=== PATIENT | male | born 1965 | race Caucasian/White ===

== ENCOUNTER 2019-02-16 11:58 | Emergency (ER) | payer OTHER ==
[~2019-02-16] VITALS: Ht 188 cm; Wt 113.4 kg
[~2019-02-16 11:58] MED LIST: FLOMAX PO; PERCOCET 5-3251 EACH PO; PERCOCET 7.5-31 EACH PO
[2019-02-16 12:37] LABS: ABSOLUTE NEUTROPHILS 7.1 thou/uL (1.4-8.2); BASOPHILS 0.4 % (0.0-2.0); HEMATOCRIT 44.8 % (42.0-52.0); HEMOGLOBIN 14.8 gm/dL (14.0-18.0); LYMPHOCYTES 24.1 % (24.0-44.0); MCH 29.8 pg (26.0-34.0); MCHC 33.1 g/dL (28.0-37.0); MCV 89.9 fL (80.0-100.0); MONOCYTES 10.7 % (1.0-8.0); PLATELET COUNT 260 thou/uL (150-400); POLYS 61.8 % (36.0-66.0); RBC 4.98 mil/uL (4.50-6.00); RDW 12.9 % (10.5-14.5); WBC 11.5 thou/uL (4.0-11.0)
[2019-02-16 12:38] LABS: URINE BILIRUBIN NEGATIVE (Negative); URINE BLOOD 3+ (Negative); URINE CLARITY TURBID; URINE COLOR RED; URINE GLUCOSE-RANDOM* NEGATIVE (Negative); URINE KETONES NEGATIVE (Negative); URINE LEUKOCYTES-REFLEX NEGATIVE (Negative); URINE NITRITE-REFLEX NEGATIVE (Negative); URINE PROTEIN (DIPSTICK) 2+ (Negative); URINE SPECIFIC GRAVITY 1.025 (1.005-1.035)
[2019-02-16 12:41] LABS: URINE RBC >20 Many /HPF (0-2)
[2019-02-16 12:42] LABS: BACTERIA-REFLEX 1-9 Few /HPF (None Seen); CASTS None Seen /LPF (None Seen); CRYSTALS None Seen /LPF (None Seen); SQUAMOUS None Seen /LPF (0-3); URINE WBC-REFLEX 6-15 Few /HPF (0-5)
[2019-02-16 12:48] LABS: CALCIUM 8.7 mg/dL (8.5-10.1); CREATININE 1.1 mg/dL (0.7-1.3); POTASSIUM 3.6 mmol/L (3.5-5.1)
[2019-02-16 12:54] LABS: ALBUMIN 4.4 g/dL (3.4-5.0); TOTAL BILIRUBIN 1.6 mg/dL (<0.1-1.0); TOTAL PROTEIN 7.6 g/dL (6.4-8.2)
[2019-02-16 15:15] VITALS: BP 148/67
[2019-02-16] MEDS ORDERED: ONDANSETRON HCL4 M2 PO ×2 (15:24→15:26)
[2019-02-16] MEDS ORDERED: HYDROCODONE-AP1 EAC6 PO ×2 (15:24→15:26)
== END 2019-02-16 15:15 | disposition home or self-care (01) ==
LOC: ER 11:58
PROVIDERS: Emergency Medicine
DX: N20.0 Calculus of kidney (principal)